=== PATIENT | male | born 1995 | race Caucasian/White ===

== ENCOUNTER 2016-10-06 01:37 | Emergency (ER) | payer OTHER ==
[~2016-10-06] VITALS: Ht 190.5 cm; Wt 113.4 kg
[2016-10-06] MEDS ORDERED: MELATIN (01:52)
[2016-10-06] MEDS ORDERED: TOPI200T4 PO (01:52)
[2016-10-06] MEDS ORDERED: SUMATRIPTAN SL (01:52)
[2016-10-06] MEDS ORDERED: TOPI50TA4 PO (01:53)
[2016-10-06] MEDS ORDERED: diphenhydrAMINE INJ 50MG/ML VIAL (J1200) IV STA (02:42)
[2016-10-06] MEDS ORDERED: METOCLOPRAMIDE INJ 10MG/2ML VIAL (J2765) IV ONE (02:45)
[2016-10-06] MEDS ORDERED: KETOROLAC 30 MG/ML VIAL (J1885) IV ONE (02:45)
[2016-10-06] MEDS ORDERED: HALOPERIDOL 5 MG/ML VIAL (J1630) IV ONE (03:45)
[2016-10-06] MEDS ORDERED: dexameTHASONE 20 MG/5 ML VIAL (J1100) IV ONE (03:45)
[2016-10-06 05:50] VITALS: BP 151/70
== END 2016-10-06 05:51 | disposition home or self-care (01) ==
LOC: M ED 02:25
DX: G43.909 Migraine, unspecified, not intractable, without status migrainosus (principal); F41.9 Anxiety disorder, unspecified; Z79.899 Other long term (current) drug therapy
CPT/HCPCS: 96374; 96375; 99283; J1100; J1200; J1630; J1885; J2765